=== PATIENT | male | born 1995 | race Two or more races ===

== ENCOUNTER 2022-09-07 09:43 | Emergency (ER) | payer OTHER, SELFPAY ==
--- NOTE | ~2022-09-07 | CT_ITS ---
EXAMINATION: CT ABDOMEN AND PELVIS WITHOUT CONTRAST CLINICAL INFORMATION: Right flank pain COMPARISON: None TECHNIQUE: Multidetector volumetric imaging was performed from the superior aspect of the liver through the pubic symphysis. Sagittal and coronal reformatted images were obtained on the technologist's workstation. This CT examination was performed using dose optimization techniques as appropriate, variously including the following: *Automated exposure control *Adjustment of mA and/or kV according to patient size (this includes techniques or standardized protocols for targeted exams where dose is matched to indication/reason for exam; i.e. extremities or head) *Use of iterative reconstruction technique DLP: 343 mGy-cm FINDINGS: LUNG BASES: Normal. No pulmonary consolidation or pleural effusion. LIVER: The liver has normal size, shape, and attenuation. No evidence of liver mass. GALLBLADDER AND BILIARY TREE: Gallbladder is without radiopaque stones, wall thickening or pericholecystic fluid. No dilated bile ducts. PANCREAS: Normal. No edema, pancreatic ductal dilatation or mass. SPLEEN: Normal. ADRENAL GLANDS: Normal. KIDNEYS AND URETERS: The kidneys have normal size, attenuation and cortical thickness. No perinephric edema or fluid collection. No urolithiasis or hydroureteronephrosis. BLADDER: Normal. No calculi or wall thickening. BOWEL AND PERITONEUM: Stomach is unremarkable. No dilated loops of bowel. The appendix is normal. No overt bowel wall thickening or mesenteric fat stranding. No free fluid or pneumoperitoneum. ABDOMINAL WALL: Unremarkable. VASCULATURE: Normal for a noncontrast examination. LYMPH NODES: No pathologic sized lymph nodes in the abdomen or pelvis. No inguinal lymphadenopathy. PELVIC VISCERA: Normal. MUSCULOSKELETAL: Normal. CT/CT abdomen pelvis wo IV con IMPRESSION: * No acute imaging abnormalities in the abdomen or pelvis. * No evidence of nephrolithiasis or hydronephrosis.
[2022-09-07 09:53] VITALS: BP 129/79; PULSE 88; RESP 19; TEMP 36.6; O2SAT 98; BMI 25.3
[2022-09-07 10:57] VITALS: BP 122/82; PULSE 81; RESP 18; O2SAT 94
[2022-09-07 11:09] LABS: MANUAL DIFF FLAG NO
[2022-09-07 11:12] LABS: Basophils Percent Auto 0.3 % (0-2); Eosinophils Percent Auto 0.2 % (0-4); Hematocrit 46.5 % (42.0-52.0); Imm Gran Abs Auto 0.02 X10*3/uL (0.00-0.03); Imm Gran Pct Auto 0.2 % (0.0-0.4); Lymphocytes Absolute Auto 1.7 X10*3/uL (1.2-4.9); Lymphocytes Percent Auto 19.4 % (20-40); Mean Corpuscular HGB Conc 34.4 g/dl (31.0-36.0); Mean Corpuscular Hemoglobin 29.7 pg (27.0-33.0); Mean Corpuscular Volume 86.3 fL (80.0-98.0); Mean Platelet Volume 10.3 fL (9.4-12.4); Monocytes Absolute Auto 0.6 X10*3/uL (0.1-1.2); Monocytes Percent Auto 6.6 % (2-11); Neutrophils Absolute Auto 6.3 x10*3/uL (2.0-8.3); Neutrophils Percent Auto 73.3 % (45-73); Platelet Count 216 X10*3/uL (160-400); Red Blood Count 5.39 X10*6/uL (4.60-5.80); Red Cell Distribution Width 11.7 % (11.0-16.0); White Blood Count 8.6 X10*3/uL (4.8-10.8)
[2022-09-07 11:17] LABS: Appearance Urine Clear; Color Urine Yellow; Glucose Urine UA Negative (Negative); Leukocyte Esterase Urine Negative (Negative); Nitrite Urine Negative (Negative); PH 6.5 (5.0-9.0); Specific Gravity - Urine <= 1.005 (1.005-1.025); UMIC TRIGGER UACC YES; Urine Blood Trace (Negative); Urine Ketones Negative (Negative); Urine Protein Negative (Neg-Trace)
[2022-09-07 11:20] LABS: Bacteria Urine None Seen (None Seen); Hyaline Casts Urine 0-2 /LPF (0-2); RBC Urine 0-2 /HPF (0-2); Squamous Epithelial Cell Urine 0-2 /HPF (0-2); WBC Urine 0-5 /HPF (0-5)
[2022-09-07 11:32] LABS: Alanine Aminotransferase 15 U/L (0-40); Albumin Level 4.7 g/dL (3.5-5.0); Alkaline Phosphatase 63 U/L (39-117); Anion Gap 10 (12-20); Aspartate Amino Transferase 15 U/L (5-37); Bilirubin Direct 0.2 mg/dL (0.0-0.5); Bilirubin Total 0.8 mg/dL (0.0-1.0); Blood Urea Nitrogen 8 mg/dL (9-16); Calcium 9.7 mg/dL (8.4-10.2); Carbon Dioxide 28 mmol/L (22-29); Chloride 104 mmol/L (96-108); Estimated Glomerular Filt Rate > 60; Glucose Random 99 mg/dL (60-115); Lipase 14 U/L (8-78); Sodium 138 mmol/L (135-145); Total Protein 7.4 g/dL (6.5-8.0)
--- NOTE | 2022-09-07 11:38 | ED.ABDPAIN ---
HPI - Abdominal Pain General Chief Complaint: Abdominal Pain Stated Complaint: abd pain going into back Time Seen by Provider: 09/07/22 11:37 Source: patient Mode of arrival: ambulatory Limitations: no limitations History of Present Illness HPI narrative: 27 male presents to the ER for evaluation of right-sided flank pain that started about 1 week ago, was intermittent at that time but got acutely worse 2 days ago. The pain radiates to the right side of his abdomen. Patient reports some mild nausea but no vomiting or diarrhea. He states a few days ago he had very mild dysuria that has since resolved. No fevers but he had chills 2 days ago. No history of kidney stones. MD elicited complaint: abdominal pain and flank pain Pertinent past history: none Onset (ago): day(s) (2) Pain Consistency: constant Location: R flank Severity: moderate Pain scale (0-10): 6 Quality: stabbing Radiation: RUQ and RLQ Migration to: no migration Exacerbating factors: nothing Relieving factors: nothing Associated symptoms: nausea Related Data Allergies Allergy/AdvReac Type Severity Reaction Status Date / Time Unable to Assess Allergy Verified 09/07/22 11:39 Review of Systems Review of Systems Yes all other systems are reviewed and are negative [facility] Social History Social History Advance Directives: No Advance Directives Information Provided: No Physical Exam ED Vital Signs: Vital Signs - 24 hr 09/07/22 09:53 09/07/22 10:57 09/07/22 12:49 Temperature 98 F Pulse Rate 88 81 76 Respiratory Rate 19 18 16 Blood Pressure 129/79 122/82 117/78 Pulse Oximetry 98 94 96 Oxygen Delivery Method Room Air Room Air Room Air BMI result Body Mass Index 25.3 Appearance: Alert. Oriented X3. No acute distress. Eyes: Pupils equal, round and reactive to light. ENT: Pharynx normal. Neck: Normal inspection. Neck supple. CVS: Normal heart rate and rhythm. Pulses normal. Respiratory: No respiratory distress. Breath sounds normal. Abdomen: Soft wtih mild right sided tenderness of the middle and lower areas, no rebound or guarding, normal +BS x4. CVA tenderness on the right Skin: Skin warm and dry. Normal skin color. Normal skin turgor. No rashes. Extremities: No lower extremity edema. Neuro: Oriented X 3. Grossly normal, nonfocal Course Course Course Narrative: 27 yo male presents to the ER for evaluation of right-sided flank pain and chills for the last couple of days. Urinalysis with trace blood. No leukocytosis and rest of his labs are unremarkable. Will get CT scan for further evaluation to look for Kidney stone. Doubt appendicitis. Reevaluation(s) Reevaluation #1: CT scan is normal. Could have had a recently passed stone causing his right flank pain. pain much improved after Toradol. He is stable for discharge home with outpatient follow-up. Return precautions discussed. Medical Decision Making Differential Diagnosis Differential Diagnoses: The differential diagnosis associated with the presentation includes Kidney stone, pyelonephritis, UTI, acute cholecystitis, musculoskeletal pain, less likely appendicitis, diverticulitis, gastritis, pancreatitis Lab Data MDM Lab Attestation statement: I reviewed the patient's lab results. unremarkable labs, no leukocytosis, no metabolic derangement or anemia. 09/07/22 11:05 09/07/22 11:04 Labs: Lab Results 09/07/22 09/07/22 09/07/22 Range/Units 11:03 11:04 11:05 WBC 8.6 (4.8-10.8) X10*3/uL RBC 5.39 (4.60-5.80) X10*6/uL Hgb 16.0 (14.0-18.0) g/dl Hct 46.5 (42.0-52.0) % MCV 86.3 (80.0-98.0) fL MCH 29.7 (27.0-33.0) pg MCHC 34.4 (31.0-36.0) g/dl RDW 11.7 (11.0-16.0) % Plt Count 216 (160-400) X10*3/uL MPV 10.3 (9.4-12.4) fL Immature Gran % (Auto) 0.2 (0.0-0.4) % Neut % (Auto) 73.3 H (45-73) % Lymph % (Auto) 19.4 L (20-40) % Gregg % (Auto) 6.6 (2-11) % Eos % (Auto) 0.2 (0-4) % Baso % (Auto) 0.3 (0-2) % Lymph # (Auto) 1.7 (1.2-4.9) X10*3/uL Gregg # (Auto) 0.6 (0.1-1.2) X10*3/uL Eos # (Auto) 0.0 (0.0-0.4) X10*3/uL Baso # (Auto) 0.0 (0.0-0.2) X10*3/uL Abs Immat Gran (auto) 0.02 (0.00-0.03) X10*3/uL Absolute Neuts (auto) 6.3 (2.0-8.3) x10*3/uL Absolute Nucleated RBC 0.000 (0.0-0.012) X10*3/uL Nucleated RBC % (auto) 0.0 (0.0-0.2) /100WBC Sodium 138 (135-145) mmol/L Potassium 4.0 (3.3-5.1) mmol/L Chloride 104 (96-108) mmol/L Carbon Dioxide 28 (22-29) mmol/L Anion Gap 10 L (12-20) BUN 8 L (9-16) mg/dL Creatinine 0.79 (0.5-1.4) mg/dL Estim Creat Clear Calc 113.0 Estimated GFR > 60 Random Glucose 99 (60-115) mg/dL Calcium 9.7 (8.4-10.2) mg/dL Total Bilirubin 0.8 (0.0-1.0) mg/dL Direct Bilirubin 0.2 (0.0-0.5) mg/dL AST 15 (5-37) U/L ALT 15 (0-40) U/L Alkaline Phosphatase 63 (39-117) U/L Total Protein 7.4 (6.5-8.0) g/dL Albumin 4.7 (3.5-5.0) g/dL Lipase 14 (8-78) U/L Urine Color Yellow Urine Appearance Clear Urine pH 6.5 (5.0-9.0) Ur Specific [place] <= 1.005 (1.005-1.025) Urine Protein Negative (Neg-Trace) mg/dL Urine Glucose (UA) Negative (Negative) mg/dL Urine Ketones Negative (Negative) mg/dL Urine Blood Trace H (Negative) Urine Nitrite Negative (Negative) Ur Leukocyte Esterase Negative (Negative) Urine RBC 0-2 (0-2) /HPF Urine WBC 0-5 (0-5) /HPF Ur Squamous Epith Cells 0-2 (0-2) /HPF Urine Bacteria None Seen (None Seen) Hyaline Casts 0-2 (0-2) /LPF Independent Interpretation I performed an independent interpretation of an: CT Scan Interpretation: Normal CT scan of the abdomen, no acute abnormality identified. Radiology Impression Discussion of test interpretation with radiology: I have reviewed the radiologist's reading. Radiologist Impression: IMPRESSION: *? No acute imaging abnormalities in the abdomen or pelvis. *? No evidence of nephrolithiasis or hydronephrosis. Independent Historian Clinical information obtained from an independent historian. History obtained from or confirmed by: Friend Prescription Management I considered prescription management with: Pain Medication and Antibiotic no infection. improved w/ nsaid Medications Administered Discontinued Medications Generic Name Dose Route Start Last Admin Trade Name Freq PRN Reason Stop Dose Admin Ketorolac Tromethamine 30 mg 09/07/22 11:51 09/07/22 12:14 Ketorolac Tromethamine 30 Mg/Ml Vial IM 09/07/22 11:52 30 mg ONCE ONE Administration Critical Care Time Critical Care Time Critical Care Time: No Discharge Plan Discharge Clinical Impression: Abdominal pain, Hematuria, microscopic Patient Disposition: Home, Self-Care Instructions: Abdominal Pain (ED) Additional Instructions: Your lab workup in CT scan today were normal. There was no evidence of zamudio or abnormality. Recommend rest, stay hydrated, drink plenty of fluids. Stick to a bland diet where not feeling well. Follow-up with your doctor. Take Motrin and Tylenol as needed for pain If you develop new or worsening symptoms call 911 or come back to the ER for further evaluation. Olivo an?lisis de laboratorio en la tomograf?a computarizada de hoy fue normal. No hab?a evidencia de espinilla o anormalidad. Recomiende descansar, mantenerse hidratado, beber muchos l?quidos. Sigue monserrat dieta blanda cuando no te sientas mook. Seguimiento con olivo m?dico. [place] Motrin y Tylenol seg?n sea necesario para el dolor Si desarrolla s?ntomas nuevos o que empeoran, llame al 911 o regrese a la ivan de emergencias para monserrat evaluaci?n adicional. Print Language: Micronesian
[2022-09-07] MEDS: Ketorolac Tromethamine 30 MG/ML VIAL IM (12:14)
[2022-09-07 12:49] VITALS: BP 117/78; PULSE 76; RESP 16; O2SAT 96
[2022-09-07 14:02] VITALS: BP 127/80; PULSE 75; RESP 14; O2SAT 96
== END 2022-09-07 14:03 | disposition home or self-care (01) ==
PROVIDERS: Emergency Provider Emergency Medicine Emergency Medical Services
DX: R10.11 Right upper quadrant pain (principal); R10.31 Right lower quadrant pain; R31.29 Other microscopic hematuria; Z79.899 Other long term (current) drug therapy
CPT/HCPCS: 36415; 74176; 80048; 80076; 81001; 83690; 85025; 96372; 99284; J1885

== ENCOUNTER 2022-10-10 08:26 | Emergency (ER) | payer OTHER, SELFPAY ==
--- NOTE | ~2022-10-10 | XR_ITS ---
EXAMINATION: XR CHEST CLINICAL INFORMATION: Cough and pain with inspiration COMPARISON: None TECHNIQUE: Frontal view of the chest was obtained. FINDINGS: Normal symmetric lung volumes. No parenchymal consolidation. No pleural effusion. No pneumothorax. Cardiomediastinal silhouette and pulmonary vascularity are within normal limits. No acute osseous abnormalities. XR/XR chest 1V IMPRESSION: Clear lungs
[2022-10-10 08:31] VITALS: BP 120/82; PULSE 96; RESP 18; TEMP 37.2; O2SAT 98; BMI 24.2
--- NOTE | 2022-10-10 08:37 | ECG_ITS ---
Test Reason : cp Blood Pressure : / mmHG Vent. Rate : 079 BPM Atrial Rate : 079 BPM P-R Int : 142 ms QRS Dur : 088 ms QT Int : 344 ms P-R-T Axes : 047 095 027 degrees QTc Int : 394 ms Normal sinus rhythm Rightward axis Borderline ECG No previous ECGs available Referred By: Generic ED Physician Electronically Signed By:DANIELA AGUILAR
[2022-10-10 08:51] LABS: MANUAL DIFF FLAG NO
[2022-10-10 08:52] LABS: Basophils Percent Auto 0.3 % (0-2); Eosinophils Absolute Auto 0.1 X10*3/uL (0.0-0.4); Eosinophils Percent Auto 0.6 % (0-4); Hematocrit 49.2 % (42.0-52.0); Hemoglobin 16.9 g/dl (14.0-18.0); Imm Gran Abs Auto 0.03 X10*3/uL (0.00-0.03); Imm Gran Pct Auto 0.4 % (0.0-0.4); Lymphocytes Absolute Auto 1.5 X10*3/uL (1.2-4.9); Lymphocytes Percent Auto 19.5 % (20-40); Mean Corpuscular HGB Conc 34.3 g/dl (31.0-36.0); Mean Corpuscular Hemoglobin 29.5 pg (27.0-33.0); Mean Platelet Volume 10.4 fL (9.4-12.4); Monocytes Absolute Auto 0.6 X10*3/uL (0.1-1.2); Monocytes Percent Auto 7.6 % (2-11); Neutrophils Absolute Auto 5.6 x10*3/uL (2.0-8.3); Neutrophils Percent Auto 71.6 % (45-73); Platelet Count 187 X10*3/uL (160-400); Red Blood Count 5.72 X10*6/uL (4.60-5.80); Red Cell Distribution Width 11.6 % (11.0-16.0); White Blood Count 7.8 X10*3/uL (4.8-10.8)
[2022-10-10 09:05] LABS: COVID-19 Test Negative (Negative); IDNOW Serial# 55D5AD1C
[2022-10-10 09:09] LABS: Alanine Aminotransferase 24 U/L (0-40); Albumin Level 4.8 g/dL (3.5-5.0); Alkaline Phosphatase 64 U/L (39-117); Anion Gap 12 (12-20); Aspartate Amino Transferase 18 U/L (5-37); Bilirubin Direct 0.2 mg/dL (0.0-0.5); Bilirubin Total 0.7 mg/dL (0.0-1.0); Blood Urea Nitrogen 14 mg/dL (9-16); Calcium 9.8 mg/dL (8.4-10.2); Carbon Dioxide 29 mmol/L (22-29); Chloride 102 mmol/L (96-108); Creatinine Clr Calc Pharmacy 108.9; Estimated Glomerular Filt Rate > 60; Glucose Random 99 mg/dL (60-115); Lipase 14 U/L (8-78); Potassium 4.2 mmol/L (3.3-5.1); Sodium 139 mmol/L (135-145); Total Protein 7.7 g/dL (6.5-8.0)
[2022-10-10 09:31] LABS: Troponin-I High Sensitivity < 3.5 ng/L (<3.5-35.0)
[2022-10-10 10:57] VITALS: BP 126/86; PULSE 64; RESP 18; TEMP 37.1; O2SAT 98
[2022-10-10 11:09] VITALS: PULSE 78
--- NOTE | 2022-10-10 11:28 | ED_ITS ---
HPI - Chest Pain General Chief Complaint: Chest Pain Stated Complaint: Chest pain/L arm pain Time Seen by Provider: 10/10/22 11:27 Source: patient Mode of arrival: ambulatory Limitations: language barrier History of Present Illness HPI narrative: History obtained by who is translating. Patien with 5 days of chest pain that has been constant. It radiates to left axilla, he feels short of breath when he talks. Relaxing makes it better, he has had chest pain in the past. Patient does physical labor at work. Patient has anxiety from work. Patient had depression in the past, not suicidal or homicidal. Currently has a therapist. No drug use, alcohol use only on the weekends. MD complaint: chest pain Onset (ago): day(s) Timing of current episode: constant Onset: during rest Pain location: left chest Pain radiation: left shoulder Severity: mild Quality: sharp Risk Factors Coronary artery disease risk factors: none Related Data Previous Rx's Medication Instructions Recorded naproxen 500 mg tablet (Naprosyn) 500 mg PO BID #20 tabs 10/10/22 Allergies Allergy/AdvReac Type Severity Reaction Status Date / Time No Known Allergies Allergy Verified 10/10/22 08:31 Review of Systems Review of Systems: Yes all other systems are reviewed and are negative Cardiovascular: Cardiovascular: Reports chest pain Neurologic: Denies Sensory deficit (Neuro) [facility] Social History Social History Alcohol intake: current Alcohol intake frequency: holidays/special occasions only Smoked in Last 30 Days: No Use of substances other than those prescribed or required for medical reasons: No Advance Directives: No Advance Directives Information Provided: No Physical Exam Vital Signs: Vital Signs: Last Vital Signs Temp 98.8 F 10/10/22 10:57 Pulse 64 10/10/22 10:57 Resp 18 10/10/22 10:57 BP 126/86 10/10/22 10:57 Pulse Ox 98 10/10/22 10:57 O2 Del Method 10/10/22 10:57 BMI result Body Mass Index 24.2 Const: General: healthy appearing Nutritional Appearance: average body habitus Orientation/consciousness: oriented to person and patient oriented x3 Limitations: no limitations HEENT: Head: Yes normal to inspection Ears: external ears normal General nose exam: Normal external nose present Mouth: Normal oral and palatal mucosa present and oropharynx normal Throat: Yes posterior oropharynx normal Eyes: General: appearance normal, both eyes and all related structures Neck: Other: supple Neck: Yes normal visual inspection Chest: Other: slight left chest tenderness to palpation Resp: Auscultation: clear to auscultation bilaterally Cardio: Jugular venous distension: no JVD Rate: regular rate Rhythm: regular rhythm Heart sounds: S1 normal heart sound present and S2 normal heart sound present GI: Inspection: Yes normal to inspection Palpation (GI): Soft to palpation, nontender and No hepatosplenomegaly present Auscultation: normal bowel sounds : General: Yes no CVA tenderness Back/Spine/Pelvis: Back: no CVA tenderness Skin: General skin exam: no rashes or lesions noted Neuro: General: oriented to person and patient oriented x3 Cranial nerves: Yes CN's II-XII intact bilaterally Motor exam (neuro): 5/5 motor strength present throughout Sensory Exam: No Sensory deficit (Neuro) Extrem: General: Yes normal to inspection Psych: Appearance: grossly normal Course Reevaluation(s) Reevaluation #1: labs, ekg, CXR normal, patient with reproducible chest pain with dc on NSAIDs Time: 11:40 Medical Decision Making Differential Diagnosis Differential Diagnoses: The differential diagnosis associated with the presentation includes (acute coronary syndrome, pneumonia, pneumothorax, costrochondritis) Lab Data MDM Lab Attestation statement: I reviewed the patient's lab results. 10/10/22 08:47 10/10/22 08:47 Labs: Lab Results 10/10/22 10/10/22 10/10/22 Range/Units 08:47 08:47 08:47 WBC 7.8 (4.8-10.8) X10*3/uL RBC 5.72 (4.60-5.80) X10*6/uL Hgb 16.9 (14.0-18.0) g/dl Hct 49.2 (42.0-52.0) % MCV 86.0 (80.0-98.0) fL MCH 29.5 (27.0-33.0) pg MCHC 34.3 (31.0-36.0) g/dl RDW 11.6 (11.0-16.0) % Plt Count 187 (160-400) X10*3/uL MPV 10.4 (9.4-12.4) fL Immature Gran % (Auto) 0.4 (0.0-0.4) % Neut % (Auto) 71.6 (45-73) % Lymph % (Auto) 19.5 L (20-40) % Polk % (Auto) 7.6 (2-11) % Eos % (Auto) 0.6 (0-4) % Baso % (Auto) 0.3 (0-2) % Lymph # (Auto) 1.5 (1.2-4.9) X10*3/uL Polk # (Auto) 0.6 (0.1-1.2) X10*3/uL Eos # (Auto) 0.1 (0.0-0.4) X10*3/uL Baso # (Auto) 0.0 (0.0-0.2) X10*3/uL Abs Immat Gran (auto) 0.03 (0.00-0.03) X10*3/uL Absolute Neuts (auto) 5.6 (2.0-8.3) x10*3/uL Absolute Nucleated RBC 0.000 (0.0-0.012) X10*3/uL Nucleated RBC % (auto) 0.0 (0.0-0.2) /100WBC Sodium 139 (135-145) mmol/L Potassium 4.2 (3.3-5.1) mmol/L Chloride 102 (96-108) mmol/L Carbon Dioxide 29 (22-29) mmol/L Anion Gap 12 (12-20) BUN 14 (9-16) mg/dL Creatinine 0.82 (0.5-1.4) mg/dL Estim Creat Clear Calc 108.9 Estimated GFR > 60 Random Glucose 99 (60-115) mg/dL Calcium 9.8 (8.4-10.2) mg/dL Total Bilirubin 0.7 (0.0-1.0) mg/dL Direct Bilirubin 0.2 (0.0-0.5) mg/dL AST 18 (5-37) U/L ALT 24 (0-40) U/L Alkaline Phosphatase 64 (39-117) U/L Troponin I High Sens (<3.5-35.0) ng/L Total Protein 7.7 (6.5-8.0) g/dL Albumin 4.8 (3.5-5.0) g/dL Lipase 14 (8-78) U/L COVID-19 ([facility]) Negative (Negative) COVID-19 Clin Com See Note 10/10/22 Range/Units 08:47 WBC (4.8-10.8) X10*3/uL RBC (4.60-5.80) X10*6/uL Hgb (14.0-18.0) g/dl Hct (42.0-52.0) % MCV (80.0-98.0) fL MCH (27.0-33.0) pg MCHC (31.0-36.0) g/dl RDW (11.0-16.0) % Plt Count (160-400) X10*3/uL MPV (9.4-12.4) fL Immature Gran % (Auto) (0.0-0.4) % Neut % (Auto) (45-73) % Lymph % (Auto) (20-40) % Polk % (Auto) (2-11) % Eos % (Auto) (0-4) % Baso % (Auto) (0-2) % Lymph # (Auto) (1.2-4.9) X10*3/uL Polk # (Auto) (0.1-1.2) X10*3/uL Eos # (Auto) (0.0-0.4) X10*3/uL Baso # (Auto) (0.0-0.2) X10*3/uL Abs Immat Gran (auto) (0.00-0.03) X10*3/uL Absolute Neuts (auto) (2.0-8.3) x10*3/uL Absolute Nucleated RBC (0.0-0.012) X10*3/uL Nucleated RBC % (auto) (0.0-0.2) /100WBC Sodium (135-145) mmol/L Potassium (3.3-5.1) mmol/L Chloride (96-108) mmol/L Carbon Dioxide (22-29) mmol/L Anion Gap (12-20) BUN (9-16) mg/dL Creatinine (0.5-1.4) mg/dL Estim Creat Clear Calc Estimated GFR Random Glucose (60-115) mg/dL Calcium (8.4-10.2) mg/dL Total Bilirubin (0.0-1.0) mg/dL Direct Bilirubin (0.0-0.5) mg/dL AST (5-37) U/L ALT (0-40) U/L Alkaline Phosphatase (39-117) U/L Troponin I High Sens < 3.5 (<3.5-35.0) ng/L Total Protein (6.5-8.0) g/dL Albumin (3.5-5.0) g/dL Lipase (8-78) U/L COVID-19 ([facility]) (Negative) COVID-19 Clin Com Independent Interpretation I performed an independent interpretation of an: EKG (sinus 80, no st or twave changes) and Plain X-Ray (chest no infiltrate no ptx) Independent Historian Clinical information obtained from an independent historian. History obtained from or confirmed by: Spouse Discharge Plan Discharge Clinical Impression: Chest pain, Costalchondritis Patient Disposition: Home, Self-Care Instructions: Chest Pain (ED), Costochondritis (ED), Thoracic Pain (ED) Prescriptions: New naproxen [Naprosyn] 500 mg tablet 500 mg PO BID Qty: 20 0RF Referrals: Physician,None [Primary Care Provider] - 5 days Stand Alone Forms: Work/School Release Interventions: ED Discharge Assessment Last Done: 10/10/22 12:00 Discharge Date/Time: 10/10/22 12:00
== END 2022-10-10 12:00 | disposition home or self-care (01) ==
PROVIDERS: Emergency Provider Emergency Medicine
DX: R07.9 Chest pain, unspecified (principal); M94.0 Chondrocostal junction syndrome [Tietze]; Z20.822 Contact with and (suspected) exposure to COVID-19
CPT/HCPCS: 36415; 71045; 80053; 82248; 83690; 84484; 85025; 87635; 93005; 99283; 99285

== ENCOUNTER 2023-02-08 19:28 | Emergency (ER) | payer OTHER, SELFPAY ==
--- NOTE | ~2023-02-08 | XR_ITS ---
EXAMINATION: XR HAND, LEFT CLINICAL INFORMATION: Fourth digit laceration. COMPARISON: None available. TECHNIQUE: PA, lateral, and oblique views of the left hand. FINDINGS: Soft tissue thickening and laceration adjacent to the fourth PIP joint, best seen on the lateral view. No unexpected radiopaque foreign bodies. No acute fractures or malalignment. XR/XR hand LT min 3V IMPRESSION: 1. Soft tissue thickening and laceration adjacent to the fourth PIP joint. 2. No acute fractures or malalignment.
[2023-02-08 20:07] VITALS: BP 107/63; PULSE 84; RESP 16; TEMP 36.7; O2SAT 95; BMI 24.8
--- NOTE | 2023-02-08 20:12 | ED_ITS ---
HPI - General Adult General Chief complaint: Wound/Laceration Stated complaint: Cut left ring finger with chainsaw Time Seen by Provider: 02/08/23 21:18 Source: patient Mode of arrival: ambulatory Limitations: no limitations History of Present Illness HPI narrative: 27 yo male present to the ER for accidentally cutting his left ring finger with a chainsaw. He states that he was cutting a tree around 1830 and cut his finger. He reports his pain is a 8/10,. He reports pain is aggravated by movement and relieved with rest. He states he is unsure about his tetanus status. Denies chest pain, shortness of breath, injury to other parts of his body, numbness, tingling, fevers, chills . Related Data Previous Rx's Medication Instructions Recorded naproxen 500 mg tablet (Naprosyn) 500 mg PO BID #20 tabs 10/10/22 Allergies Allergy/AdvReac Type Severity Reaction Status Date / Time No Known Allergies Allergy Verified 10/10/22 08:31 Review of Systems Review of Systems: Constitutional : No Fever, No Chills, Cardiovascular : No Chest Pain, No SOB Respiratory : No Dyspnea Gastrointestinal : No abdominal pain Musculoskeletal : No Joint Swelling Skin : No rash, positive skin laceration Neuro : No Weakness, No Numbness Psych : No SI/HI Yes all other systems are reviewed and are negative [facility] Past Medical History Attestation statement: The following information was validated with the patient. Source: old records reviewed and nursing notes reviewed Social History Social History Alcohol intake: current Alcohol intake frequency: holidays/special occasions on Advance Directives: No Advance Directives Information Provided: No Physical Exam ED Vital Signs: Vital Signs - 24 hr 02/08/23 20:07 Temperature 98.0 F Pulse Rate 84 Respiratory Rate 16 Blood Pressure 107/63 Pulse Oximetry 95 BMI result Body Mass Index 24.8 vss Appearance: Alert.? Oriented X3.? No acute distress.? Head: Normocephalic, atraumatic, no step-offs or deformities Eyes: Pupils equal, round and reactive to light.? Neck: Normal inspection.? Neck supple.? CVS: Normal heart rate and rhythm.? Pulses normal.? Respiratory: No respiratory distress.? Breath sounds normal.? Abdomen: Soft and nontender.? Skin: Skin warm and dry.? Normal skin color.? Normal skin turgor.? Extremities: No lower extremity edema.? No calf ttp. 5/5 strength to bilateral upper and lower extremities + 1 cm linear laceration overlying the L 4th PIP joint. Full ROM. 2+ radial pules equal and b/l. No wrist drop. Normal cap refil < 2 seconds b/l UE digits. Neuro: Oriented X 3.? No motor deficit.? No sensory deficit. CN 2-12 intact Course Course Course Narrative: This is an RME: Additional HPI, ROS, PE not included below will be deferred to primary provider. 27 y/o male presenting to the ER for evaluation of laceration to left fourth finger laceration from chainsaw. Reports that the chainsaw landed onto his hand. Pt endorsing pain, numbness/tingling into his hand. not able to close fist. There is a small 1 cm laceration overlying the 4th PIP, no active drainage. Needing wound repair and Tdap. Due to pain in hand will order x-ray Reevaluation(s) Reevaluation #1: Dermabond successfully applied to laceration, patient tolerated procedure well. Placed in a finger splint. Educated on results of imaging . Educated patient on diagnosis and treatment plan, answered all question, patient verbalizes understanding. At this time patient will be discharged home, advised to return with new or worsening symptoms. Educated on worrisome signs and symptoms and when to return. At this time I feel comfortable discharge home. Time: 22:34 Medical Decision Making Medical Decision Making [facility] Narrative: 27 yo m presents w/ laceration to the 4th digit cut himself w/ a chainsaw HEAD OF MAINTENANCE PE - 1 cm linear laceration overlying the L 4th PIP joint. Full ROM. 2+ radial pules equal and b/l. No wrist drop. Normal cap refil < 2 seconds b/l UE digits. Likely simple lac unlikely fx, dislocation, threatened limb, nv compromise. No signs of FB unlikely ligament or tendon injury Plan- dermabond and splint pending xray Differential Diagnosis Differential Diagnoses: The differential diagnosis associated with the presentation includes Likely simple lac unlikely fx, dislocation, threatened limb, nv compromise. No signs of FB unlikely ligament or tendon injury Admission/Observation Consideration of admission/observation: Escalation of care including admission/observation considered Unlikely Independent Interpretation I performed an independent interpretation of an: Plain X-Ray (XR/XR hand LT min 3V IMPRESSION: 1. Soft tissue thickening and laceration adjacent to the fourth PIP joint. 2. No acute fractures or malalignment. ) Radiology Impression Discussion of test interpretation with radiology: I have reviewed the radiologist's reading. Tests considered The following testing was considered but not selected: No signs of threatened limb or neurovascular compromise no indication for CT or MRI emergently. Core Measures AMI core measures followed: Yes Measure exclusions: not indicated Critical Care Time Critical Care Time Critical Care Time: No Discharge Plan Discharge Clinical Impression: Laceration, Finger pain, left Patient Disposition: Home, Self-Care Additional Instructions: Take your medications as prescribed. If you were prescribed antibiotics today, it is important that you take your medication to their entirety, do not skip any doses, do not finish them early. Follow-up with your primary care provider this week. Return to the emergency department with new or worsening symptoms. Such as fevers, chills, chest pain, shortness of breath, nausea, vomiting, dizziness, headache, vision changes, lethargy In case of emergency call 911 XR/XR hand LT min 3V IMPRESSION: 1.? Soft tissue thickening and laceration adjacent to the fourth PIP joint. 2.? No acute fractures or malalignment. ? Prescriptions: No Action naproxen [Naprosyn] 500 mg tablet 500 mg PO BID Qty: 20 0RF Referrals: Physician,None [Primary Care Provider] - 1 week Stand Alone Forms: Work/School Release
[2023-02-08] MEDS: Diphth,Pertus(ACell),Tet Adult 0.5 ML SYRINGE IM (22:33)
== END 2023-02-08 22:44 | disposition home or self-care (01) ==
PROVIDERS: Emergency Provider Emergency Medicine Emergency Medical Services
DX: S61.215A Laceration without foreign body of left ring finger without damage to nail, initial encounter (principal); W29.3XXA Contact with powered garden and outdoor hand tools and machinery, initial encounter; M79.645 Pain in left finger(s); Y93.H9 Activity, other involving exterior property and land maintenance, building and construction; Y92.9 Unspecified place or not applicable; Y99.9 Unspecified external cause status
CPT/HCPCS: 12001; 29130; 73130; 90471; 90715; 99282; 99284